=== PATIENT | female | born 1995 | race Caucasian/White ===

== ENCOUNTER 2018-08-23 14:39 | Emergency (ER) | payer OTHER ==
[~2018-08-23] VITALS: Ht 160 cm; Wt 59.1 kg
[~2018-08-23 14:39] MED LIST: IBUPROFEN600 MG PO; PERCOCET 10/3251 TA1 PO; PRENATAL COMPLE1 TAB PO
[2018-08-23 14:57] VITALS: Ht 160 cm; Wt 59.1 kg
[2018-08-23 15:24] LABS: BASOPHILS 0.2 % (0-2); EOSINOPHILS 0.7 % (0-7); HEMATOCRIT 36.8 % (36.0-48.0); HEMOGLOBIN 12.5 g/dL (12-16); IMMATURE GRANULOCYTES 0.2 % (0-5); LYMPHOCYTES 33.3 % (15-50); MCH 29.5 pg (26.0-34.0); MCV 86.8 fL (80.0-100.0); MEAN PLATELET VOLUME 10.6 fL (7.4-10.4); MONOCYTES 6.8 % (2-11); NEUTROPHILS 58.8 % (40-80); RBC 4.24 10x6/uL (4.00-5.40); RDW 12.1 % (11.5-14.5); WBC 9.4 10x3/uL (4.8-10.8)
[2018-08-23 15:26] LABS: PLATELET COUNT 196 10x3/uL (130-400)
[2018-08-23 15:27] LABS: APPEARANCE CLEAR (CLEAR); BILIRUBIN NEGATIVE (NEGATIVE); COLOR YELLOW (YELLOW); GLUCOSE NEGATIVE (NEGATIVE); KETONE NEGATIVE (NEGATIVE); NITRITE NEGATIVE (NEGATIVE); PROTEIN NEGATIVE (NEGATIVE); SPECIFIC GRAVITY 1.005 (1.005-1.020); UROBILINOGEN NORMAL (NORMAL)
[2018-08-23 15:41] LABS: ALBUMIN 3.9 g/dL (3.4-5.0); ALKALINE PHOSPHATASE 40 U/L (46-116); ALT (SGPT) 20 U/L (10-68); BILIRUBIN - TOTAL 0.36 mg/dL (0.2-1.3); CALC OSMOLALITY 277 mosm/kg (275-300); CALCIUM 9.1 mg/dL (8.5-10.1); CARBON DIOXIDE 26.1 mmol/L (21.0-32.0); CHLORIDE - SERUM 105 mmol/L (98-107); CREATININE - SERUM 0.7 mg/dL (0.6-1.3); GLUCOSE 90 mg/dL (74-106); POTASSIUM - SERUM 3.5 mmol/L (3.5-5.1); PROTEIN - SERUM 6.9 g/dL (6.4-8.2); SODIUM 140 mmol/L (136-145); UREA NITROGEN 10 mg/dL (7-18); eGFR NON AFRICAN AMERICAN > 90 mL/min (90-120)
[2018-08-23 16:02] LABS: HCG - QUANTITATIVE (MATERNAL) 7188 mIU/mL
[2018-08-23] MEDS ORDERED: ZOFRAN ODT4 MG/UDTAB PO (16:34)
[2018-08-23 16:44] VITALS: BP 108/69
== END 2018-08-23 16:45 | disposition home or self-care (01) ==
LOC: D.ER 14:39
PROVIDERS: Family Medicine
DX: O21.9 Vomiting of pregnancy, unspecified (principal); Z3A.01 Less than 8 weeks gestation of pregnancy

== ENCOUNTER → 2019-02-16 12:13 | Outpatient (CLI) | payer OTHER ==
[2018-08-23 14:57] VITALS: BMI 23.0
[~2019-02-16 12:13] MED LIST changes: +ZOFRAN ODT4 MG/UDTAB PO
== END | disposition home or self-care (01) ==
LOC: D.LDO 12:13
PROVIDERS: ATTEND Obstetrics & Gynecology
DX: O26.899 Other specified pregnancy related conditions, unspecified trimester (principal)

== ENCOUNTER 2019-04-21 19:50 | Inpatient (IN) | payer MEDICAID ==
[~2019-04-21] VITALS: Ht 160 cm; Wt 75.5 kg
[2019-04-21 21:49] LABS: APPEARANCE CLEAR (CLEAR); BILIRUBIN NEGATIVE (NEGATIVE); COLOR YELLOW (YELLOW); GLUCOSE NEGATIVE (NEGATIVE); KETONE NEGATIVE (NEGATIVE); NITRITE NEGATIVE (NEGATIVE); PROTEIN NEGATIVE (NEGATIVE); UROBILINOGEN NORMAL (NORMAL)
[2019-04-21 21:52] LABS: RED CELLS - URINE OCC /hpf (0-5)
[2019-04-21 21:53] LABS: BACTERIA MODERATE /hpf (NONE SEEN); EPITHELIAL CELLS 0-5 /hpf (0-5); WHITE CELLS - URINE OCC /hpf (0-5)
[2019-04-21 22:32] LABS: HEMATOCRIT 34.1 % (36.0-48.0); HEMOGLOBIN 11.4 g/dL (12-16); MCH 28.4 pg (26.0-34.0); MCHC 33.4 g/dL (31.0-37.0); MCV 84.8 fL (80.0-100.0); MEAN PLATELET VOLUME 11.6 fL (7.4-10.4); RBC 4.02 10x6/uL (4.00-5.40)
[2019-04-21 23:00] VITALS: BP 104/67; Ht 160 cm; Wt 75.5 kg
--- NOTE | 2019-04-22 14:00 | NUR ---
PT UP TO VOID WITH NO ASSISTANCE NEEDED. GOWN CHANGED, SWADDLED AND PLACED IN CRIB. PT AMB PUSHING CRIB TO ROOM 1257. ORIENT TO ROOM, CALL LIGHT AND TV. TOWELS PLACED IN BATHROOM, PT STATES UNDERSTANDING THAT OK TO SHOWER LONG SOMEONE IS PRESENT IN ROOM. DENIES NEEDS AT THIS TIME.
--- NOTE | 2019-04-22 16:15 | NUR ---
pt denies needs at this time. rates pain at 2/10. in crib at bedside.
--- NOTE | 2019-04-22 17:45 | NUR ---
pt calls out to verify that ok for her to shower. FOB at bedside with . She denies needs for shower and understands to use emergency call if nurse is needed.
--- NOTE | 2019-04-22 18:35 | NUR ---
out of shower and states that she is feeling "much" better. rates pain at 4/10, understands tordal will be brought/given if possible or when it was time. sleeping in crib at bedside. family and friends present.
--- NOTE | 2019-04-22 19:10 | NUR ---
BONDING WITH INFANT AND CONVERSING WITH VISITORS SITTING UP IN CHAIR, DENIES NEEDS AT THIS TIME. WILL CONTINUE TO MONITOR AND ASSIST PRN.
--- NOTE | 2019-04-22 20:22 | NUR ---
ADMINISTERED TYLENOL 1000MG PO PER MD ORDERS AT THIS TIME. PT SITTING UP IN CHAIR HOLDING , NO DISTRESS NOTED. PT RATES HER PAIN 5/10, STATES THAT SHE IS CRAMPING. SIGNIFICANT OTHER REMAINS AT BEDSIDE, CALL CASTELLANOS IN REACH. WILL CONTINUE TO MONITOR.
[2019-04-22 21:04] VITALS: BP 96/51
--- NOTE | 2019-04-22 21:04 | NUR ---
SHIFT ASSESSMENT COMPLETED PER FLOWSHEET. PAIN REMAINS 6/10, PERINEAL BURNING AND STINGING AND ABD CRAMPING. TORADOL GIVEN PER ORDER AND PT REQUEST. VSS. FUNDUS FIRM, MIDLINE AND U1 WITH SMALL AMT RUBRA LOCHIA, NO CLOTS PRESENT. BILATERAL LABIAL STITCHES WELL APPROXIMATED, MILD EDEMA NOTED, ICE PACK PROVIDED. TUX PADS IN PLACE, PT VERBALIZES THAT SHE HAS BEEN DOING PERICARE WITH EACH VOID, AND DENIES QUESTIONS. STATES THAT SHE IS VOIDING WITHOUT DIFFICULTY. REPORTS THAT SHE IS PASSING FLATUS. PLAN OF CARE DISCUSSED WITH PT AND SIGNIFICANT OTHER, BOTH DENY QUESTIONS. BED IN LOW POSITION WITH UPPER SIDE RAILS RAISED X2. CALL LIGHT AND PHONE WITHIN REACH.
--- NOTE | 2019-04-22 21:55 | NUR ---
PAIN 3/10, ABD CRAMPING. DENIES ADDITIONAL NEEDS AT THIS TIME. ICE WATER PROVIDED. SIGNIFICANT OTHER REMAINS AT BEDSIDE, SUPPORTIVE AND ATTENTIVE TO PT AND INFANT NEEDS. BED IN LOW POSITION WITH UPPER SIDE RAILS RAISED X2. CALL LIGHT AND PHONE WITHIN REACH. WILL CONTINUE TO MONITOR AND ASSIST PRN.
--- NOTE | 2019-04-22 22:45 | NUR ---
PIV FROM LEFT WRIST D/C'D PER PT REQUEST. VERBALIZES UNDERSTANDING THAT IF IV ACCESS IS NEEDED IT WOULD HAVE TO BE RESTARTED. AMBIEN OFFERED AND REFUSED. DENIES NEEDS. RESTING QUIETLY IN OPEN CRIB. ENCOURAGED PT TO REST. ICE PACK PROVIDED FOR PERINUEM. DENIES ADDITIONAL NEEDS. BED IN LOW POSITION WITH UPPER SIDE RAILS RAISED X2. CALL LIGHT AND PHONE WITHIN REACH. WILL CONTINUE TO MONITOR AND ASSIST PRN.
--- NOTE | 2019-04-23 00:22 | NUR ---
PT IN SEMI-FOWLERS POSITION RESTING WITH EYES CLOSED. AT MOM'S BREAST WITH EYES CLOSED. PT AROUSES TO TOUCH, REINFORCED WITH PT THAT IF SHE IS SLEEPING MUST BE IN OPEN CRIB. VERBALIZES UNDERSTANDING, STATES THAT SHE JUST FINISHED NURSING HIM. INFANT SWADDLED IN 2 BLANKETS AND BROUGHT TO NBN PER MOM'S REQUEST. WARM BLANKET PROVIDED PER REQUEST. DENIES ADDITIONAL NEEDS. BED IN LOW POSITION WITH UPPER SIDE RAILS RAISED X2. SIGNIFICANT OTHER REMAINS AT BEDSIDE SUPPORTIVE AND ATTENTIVE TO PT AND NEEDS. CL AND PHONE WITHIN REACH.
--- NOTE | 2019-04-23 03:03 | NUR ---
1,000 MG TYLENOL GIVEN PER ORDER. C/O PAIN 02/24, ABD CRAMPING. REQUESTS TORADOL ALSO, PROVIDED PER PT REQUEST. ICE WATER PROVIDED. DENIES ADDITIONAL NEEDS. BED IN LOW POSITION WITH UPPER SIDE RAILS RAISED X2. CALL LIGHT AND PHONE WITHIN REACH. SIGNIFICANT OTHER RESTING QUIETLY ON COUCH AT BEDSIDE. WILL CONTINUE TO MONITOR.
--- NOTE | 2019-04-23 03:45 | NUR ---
PAIN REASSESSMENT COMPLETED. PT RESTING QUIETLY WITH EYES CLOSED IN SEMI FOWLERS POSITION. RESPIRATIONS REGULAR AND UNLABORED, NO S/S OF DISTRESS NOTED. BED IN LOW POSITION WITH UPPER SIDE RAILS RAISED X2. CALL LIGHT AND PHONE WITHIN REACH. SIGNIFICANT OTHER RESTING QUIETLY ON COUCH. WILL CONTINUE TO MONITOR AND ASSIST PRN.
--- NOTE | 2019-04-23 05:33 | NUR ---
INFANT IN ARMS. DENIES NEEDS. SIGNIFICANT OTHER AT BEDSIDE, SUPPORTIVE AND ATTENTIVE TO PT AND INFANT NEEDS. BED IN LOW POSITION WITH UPPER SIDE RAILS RAISED X2. CALL LIGHT AND PHONE WITHIN REACH. ICE PACK OFFERED AND REFUSED AT THIS TIME.
[2019-04-23 06:57] LABS: BASOPHILS 0.2 % (0-2); EOSINOPHILS 1.7 % (0-7); HEMATOCRIT 32.3 % (36.0-48.0); HEMOGLOBIN 10.7 g/dL (12-16); IMMATURE GRANULOCYTES 0.1 % (0-5); LYMPHOCYTES 25.8 % (15-50); MCH 28.1 pg (26.0-34.0); MCHC 33.1 g/dL (31.0-37.0); MCV 84.8 fL (80.0-100.0); MEAN PLATELET VOLUME 11.8 fL (7.4-10.4); MONOCYTES 10.4 % (2-11); NEUTROPHILS 61.8 % (40-80); PLATELET COUNT 158 10x3/uL (130-400); RBC 3.81 10x6/uL (4.00-5.40)
[2019-04-23 06:59] LABS: WBC 11.5 10x3/uL (4.8-10.8)
--- NOTE | 2019-04-23 08:00 | NUR ---
ASSESSMENT DONE. PT AWAKE AND BABY IN ARMS. VERBAL RESPONSES APPRO TO QUESTIONS. FUNDUS UU/FIRM. SMALL LOCHIA NOTED ON PAD- NO CLOTS.
[2019-04-23 08:15] LABS: RAPID PLASMA REAGIN Non Reactive (Non Reactive)
[2019-04-23 08:16] VITALS: BP 103/64
--- NOTE | 2019-04-23 08:27 | NUR ---
Go Manley 04/23/19 S: Patient states things are going good with . Yesterday she pumped the left breast because wouldn't latch. States she just fed baby from the right breast. Verbalized changing infant position has helped because wouldn't latch on the left breast at all and denies pain with latching. States she really like the new position. Denies any other question or concerns. O: Patient sitting up in bed holding and eating breakfast. is awake and alert. Congratulated on delivery and asked how can I help you with ? What are your thoughts on how things are going with ? Informed patient takes time, practice, and patience. Both mother and are learning how to breastfeed. Explained breastmilk composition, benefits of skin to skin, demonstrated with infant how to hold for laid back positions, positions, infant feeding cues and how to verify latch is correct. Observed infant rooting and offered to help with latching in laid back position. Patient placed in laid back position. Infant was placed on the left breast at 8:35 and latched immediately. Infant mouth was 140 degrees, round cheeks, sucking in a rocking motion, and appears content at the breast. Patient denies discomfort or pain with infant latch. Observed infant sucking and could hear swallowing. Asked if any questions or concerns? A: Patient states not latching on the left breast. Infant is doing good with latching on the right breast. P: Continue to promote during hospital visit. Doug Edmondson, CLC
--- NOTE | 2019-04-23 09:03 | NUR ---
sitting up in bed- holding . meds given for pain. denies other needs.
--- NOTE | 2019-04-23 10:43 | NUR ---
up to shower. states that pain is better- rates pain a 4-5 on scale of 0-10.
--- NOTE | 2019-04-23 12:00 | NUR ---
REG DIET SERVED. UP AND ABOUT IN ROOM. NO REQUESTS.
[2019-04-23 14:00] VITALS: BP 112/71
--- NOTE | 2019-04-23 14:12 | NUR ---
DR APODACA HERE TO SEE PT.
--- NOTE | 2019-04-23 16:35 | NUR ---
IN ROOM - QUESTIONING WHERE UTERUS IS- FUNDUS U3/FIRM. PT STATES SHE HAD ABOUT QUARTER SIZE LOCHIA WHEN SHE WENT TO BATHROOM- EXPLAINED THAT IS FINE. STATES SHE WILL TAKE TORADOL FOR CRAMPING AT THIS TIME.
--- NOTE | 2019-04-23 18:55 | NUR ---
RESTING IN BED- DENIES NEEDS. FAMILY AT BEDSIDE.
--- NOTE | 2019-04-23 20:00 | NUR ---
PT. AT PRESENT. C/O ABD CRAMPING. INFORMED PT. OF REASON FOR CRAMPING WITH AND ALSO BENEFITS. PT. STATES UNDERSTANDING BUT ALSO INQUIRES HOW LONG CRAMPING MIGHT LAST. INFORMATION GIVEN. FOB AT BEDSIDE. ICE PROVIDED FOR PT'S BOTTLED WATER AT BEDSIDE. INFORMED PT. THAT THIS NURSE WOULD RETURN FOR ASSESSMENT AFTER FEEDING COMPLETED.
[2019-04-23 20:54] VITALS: BP 102/64
--- NOTE | 2019-04-23 20:54 | NUR ---
AGAIN. PT. RATES PAIN A 4 OF 10 FOR ABD. CRAMPING. DENIES ANY PAIN IN LOWER EXTREMITIES. BREATH SOUNDS CLEAR AND BOWEL SOUNDS AUDIBLE. DENIES ANY NEEDS AT THIS TIME.
--- NOTE | 2019-04-23 22:06 | NUR ---
scheduled tylenol given as ordered. Pt states her pain has decreased and very tolerable . Holding infant at present. Fob at bedside.
--- NOTE | 2019-04-23 22:45 | NUR ---
PT. REPORTS THAT PAIN IS 3 OF 10 HAS DECREASED SINCE TYLENOL. HOLDING AT PRESENT. FOB TALKING ABOUT DELIVERY AND RELIVING THE EVENTS THAT HE EXPERIENCED. TALKING WITH EXCITEMENT AND HAPPINESS. PT. STATES THAT THIS IS HIS FIRST BABY ALTHOUGH HE IS A GOOD FATHER TO HER DAUGHTER. PT. AND FOB TALKATIVE AND CHEERFUL. DENIES ANY NEEDS AT THIS TIME.
--- NOTE | 2019-04-24 00:04 | NUR ---
SITTING ON SIDE OF BED BURPING INFANT. RATES ABD CRAMPING A 4 OF 10 ON PAIN SCALE. TORADOL GIVEN ORDERED. ICE WATER PROVIDED.
--- NOTE | 2019-04-24 01:59 | NUR ---
PT. SLEEPING AT PRESENT. FOB STATES HE PLANS TO SLEEP FOR ONE HOUR. INFANT TO NBN PER NURSERY NURSE.
--- NOTE | 2019-04-24 03:51 | NUR ---
INFANT TO ROOM FOR . ID BANDS MATCHED. PAIN 3/10 ABD CRAMPING. 1000 MG TYLENOL GIVEN PER ORDER. ICE WATER PROVIDED. DENIES ADDITIONAL NEEDS. SPOUSE RESTING ON COUCH AT BEDSIDE. BED IN LOW POSITION WITH UPPER SIDE RAILS RAISED X2. CALL LIGHT AND PHONE WITHIN REACH. WILL CONTINUE TO MONITOR AND ASSIST PRN.
--- NOTE | 2019-04-24 04:20 | NUR ---
PT. STATES TYLENOL HELPED DISCOMFORT AND STATES PAIN IS A 4 OF 10. AGAIN AT THIS TIME.
--- NOTE | 2019-04-24 05:37 | NUR ---
REPORTS FEELING NAUSEATED AND STATES THAT SHE HASN'T EATEN SINCE 1600 YESTERDAY AFTERNOON. [employer].
--- NOTE | 2019-04-24 05:48 | NUR ---
REPORTS THAT NAUSEA IS NOW GONE AFTER EATING CRACKERS, JELLO, AND DRINKING JUICE. UP TO SHOWER. SPOUSE REMAINS IN ROOM. PT VERBALIZES USE OF CALL LIGHT IN BATHROOM FOR ASSISTANCE. TOWELS PROVIDED.
--- NOTE | 2019-04-24 06:33 | NUR ---
OUT OF SHOWER, SITTING ON EDGE OF BED. DENIES NEEDS AT THIS TIME. BED IN LOW POSITION WITH UPPER SIDE RAILS RAISEDS X2. CALL LIGHT AND PHONE WITHIN REACH.
[2019-04-24 09:00] VITALS: BP 103/63
--- NOTE | 2019-04-24 09:00 | NUR ---
AM ASSESSMENT COMPLETED, SEE FLOWSHEET. PT DENIES HEAVY BLEEDING OR PASSING CLOTS. SIG OTHER ASLEEP ON SOFA. PT IS NOW HOLDING INFANT, AND TO BEDSIDE CHAIR. PT DENIES NEEDING PAIN MEDICATION, AND ANY OTHER NEEDS AT THIS TIME. CALL LIGHT WITHIN REACH.
--- NOTE | 2019-04-24 09:10 | NUR ---
DR. APODACA ON UNIT, TO PT'S ROOM. ROUNDS MADE.
--- NOTE | 2019-04-24 10:00 | NUR ---
SEE EMAR FOR ALL MEDS ADM BY THIS RN.
[2019-04-24 11:25] VITALS: BP 106/60
[2019-04-24] MEDS ORDERED: IBUPROFEN800 MG PO (12:03)
--- NOTE | 2019-04-24 12:20 | NUR ---
DISCHARGE INSTRUCTIONS EXPLAINED TO PT, ALONG WITH PP INSTRUCTION SHEETS, EMERGENCY SIGNS/SYMPTOMS SHEET, AND PRESCRIPTION FOR MOTRIN 800 MG GIVEN TO PT. SEE COPIES. PT DENIES ALL QUESTIONS AT THIS TIME. PT WANTS TO BREASFEED INFANT BEFORE LEAVING. WILL CALL FURNACE REPAIRER LIGHT WHEN READY FOR DISCHARGE.
--- NOTE | 2019-04-24 12:35 | NUR ---
PT TAKEN TO PRIVATE VEHICLE IN WHEELCHAIR WITH INFANT IN CARSEAT, PT IN STABLE CONDITION, FAMILY AT SIDE.
--- NOTE | 2019-04-24 19:27 | MORECARE ---
CASE MANAGEMENT DISCHARGE SUMMARY PATIENT: OLAYINKA CALDERÓN UNIT: [id number] ADM DATE: 04/21/19 AGE: 24 : [birth year] SEX: F ROOM/BED: D.1257 AUTHOR: RUTHANN HI PHYSICIAN: REFERRING PHYSICIAN: BLAS APODACA MD DATE OF SERVICE: 04/24/19 Discharge Plan Patient Name: OLAYINKA CALDERÓN [facility] [facility] 1995 Planned Disposition: Anticipated Discharge Date: Discharge Date: 04/24/2019 Expected LOS: Initial Reviewer: [email or web address] Initial Review Date: 04/21/2019 Generated: 04/24/19 8:27 pm Patient Name: OLAYINKA CALDERÓN Page [id number] at 1925 All edits/amendments must be made on the electronic document DICTATION DATE: 04/24/191926 QA TEST ANALYST: EDWIN 04/24/191926 RPT#: [id number] DC DATE:04/24/19 STATUS: DIS IN [facility] [address] [place] [address] END OF REPORT
== END 2019-04-24 12:35 | disposition home or self-care (01) | DRG 807 ==
LOC: D.LD 19:50
PROVIDERS: ADMIT Obstetrics & Gynecology; ATTEND Obstetrics & Gynecology
PROC: 10E0XZZ Delivery of Products of Conception, External Approach (ICD-10-PCS; principal; 2019-04-22)
PROC: 3E033VJ Introduction of Other Hormone into Peripheral Vein, Percutaneous Approach (ICD-10-PCS; 2019-04-22)
PROC: 0HQ9XZZ Repair Perineum Skin, External Approach (ICD-10-PCS; 2019-04-22)
DX: O71.4 Obstetric high vaginal laceration alone (principal); Z37.0 Single live birth; Z3A.39 39 weeks gestation of pregnancy